=== PATIENT | male | born 1985 | race Caucasian/White ===

== ENCOUNTER 2017-09-12 01:12 | Emergency (ER) | payer SELFPAY ==
--- NOTE | 2017-09-12 02:11 | ER Document Report ---
ED General - General Chief Complaint: Chest Pain Stated Complaint: CHEST PAIN Time Seen by Provider: 09/12/17 02:01 Notes: Patient is a 32-year-old male who presents with complaint of heart racing and feeling unwell. He said that he just finished a course of tapering prednisone. He said since being on prednisone is been very easily agitated. Tonight he felt like his heart started racing beat hard when he is playing video game. Later night he woke up and felt his heart beating hard and fast. With that he has some pain in his chest. Says symptoms were intermittent until he got to the ER. Since arriving to the ER his symptoms have resolved. Denies any leg pain or leg swelling. He denies any recent surgeries. No recent long road trips. He is a smoker. He has no other complaints at this time. No history of cardiac pathology in the past. Past Medical History - Social History Smoking Status: Current Every Day Smoker Frequency of alcohol use: None Drug Abuse: None Family History: Reviewed & Not Pertinent Review of Systems - Review of Systems Notes: My Normal Review Basic REVIEW OF SYSTEMS: CONSTITUTIONAL : Denies fever, chills, or sweats. Denies recent illness. EENT: Denies eye, ear, throat, or mouth pain or symptoms. Denies nasal or sinus congestion. CARDIOVASCULAR: Chest pain palpitations. RESPIRATORY: Denies cough, cold, or chest congestion. Denies shortness of breath, difficulty breathing, or wheezing. GASTROINTESTINAL: Denies abdominal pain. Denies nausea, vomiting, or diarrhea. SKIN: Denies rash or skin lesions. NEUROLOGICAL: Denies altered mental status or loss of consciousness. ALL OTHER SYSTEMS REVIEWED AND NEGATIVE. Physical Exam - Vital signs Vitals: Temp Pulse Resp BP Pulse Ox 98.1 F 95 18 119/62 100 09/12/17 01:24 09/12/17 01:24 09/12/17 01:24 09/12/17 01:24 09/12/17 01:24 - Notes Notes: General Appearance: Well nourished, alert, cooperative, no acute distress, no obvious discomfort. Well-appearing. Vitals: reviewed, See vital signs table. Head: no swelling or tenderness to the head Eyes: PERRL, EOMI, Conjuctiva clear Mouth: No decreasd moisture Lungs: No wheezing, No rales, No rhonci, No accessory muscle use, good air exchange bilaterally. Heart: Normal rate, Regular rythm, No murmur, no rub Abdomen: Normal BS, soft, No rigidity, No abdominal tenderness, No guarding, no rebound, no abdominal masses, no organomegaly Extremities: strength 5/5 in all extremities, good pulses in all extremities, no swelling or tenderness in the extremities, no edema. Skin: warm, dry, appropriate color, no rash Neuro: speech clear, oriented x 3, normal affect, responds appropriately to questions. Course - Re-evaluation Re-evalutation: 09/12/17 02:01 EKG is reviewed and interpreted by me. EKG shows sinus rhythm with a rate of [address] segment elevation or depression. No ischemic T-wave inversions. OR interval, QRS duration, QTc intervals are within normal range. No old EKG available for comparison. 09/12/17 05:20 Patient looks very well on exam. His symptoms have resolved. He does not have any ectopy on the monitor. His EKG does not show any concerning findings. His chest x-ray is negative. He does mention that he has been having some increased agitation since starting prednisone. He did just finish the prednisone. I am unsure if maybe his symptoms are rate related to more of a psychosomatic type response due to his agitation. Informed him to rest and relax over the next 24 to 48 hrs. Informed him that if he continues to have these episodes of feeling as if his heart is beating fast that he should follow- up with outfitter cabin for reevaluation and possible Holter monitor. I informed him that if he has prolonged periods of feeling his heart is going fast that will he should return to ER immediately for reevaluation. Patient agrees with plan will be discharged home. Dictation of this chart was performed using voice recognition software; therefore, there may be some unintended grammatical errors. - Vital Signs Vital signs: Temp Pulse Resp BP Pulse Ox 98.2 F 84 17 121/78 98 09/12/17 03:25 09/12/17 03:25 09/12/17 03:25 09/12/17 03:25 09/12/17 03:25 Discharge - Discharge Clinical Impression: Palpitations Chest pain Qualifiers: Chest pain type: unspecified Qualified Code(s): R07.9 - Chest pain, unspecified Condition: Good Disposition: HOME, SELF-CARE Additional Instructions: Please rest over the next few days. please avoid caffeine or any type of energy supplements. Please try to cut back on smoking. Please follow up with Dr. Yeboah, outfitter cabin, if you continue to have the intermittent chest pain and fast heart beating throughout the weekend. Please return to the ER immediately if you have continuous palpitations that does not go away on its own or worsening recurrent chest pain. Forms: Special Work Note, Return to Work Referrals: BINDU YEBOAH MD [ACTIVE STAFF] - Follow up in 3-5 days
--- NOTE | 2017-09-12 02:32 | RADIOLOGY REPORT (SQ) ---
EXAM DESCRIPTION: CHEST PA/LAT CLINICAL HISTORY: 32 years, Male, chest pain, palpitations COMPARISON: None. NUMBER OF VIEWS: 2 FINDINGS: Normal lung volume, clear parenchyma, normal cardiac silhouette, and intact bony thorax. IMPRESSION: No acute cardiopulmonary findings.
[2017-09-12 03:35] VITALS: BP 121/78
--- NOTE | 2017-09-12 08:07 | EKG REPORT ---
SEVERITY:- BORDERLINE ECG - SINUS RHYTHM BORDERLINE T ABNORMALITIES, ANT-LAT LEADS : Confirmed by: Antwan Upton MD 12-Sep-2017 08:07:17
== END 2017-09-12 03:34 | disposition home or self-care (01) ==
LOC: ER 01:12
DX: R07.9 Chest pain, unspecified (principal); R00.2 Palpitations; Z79.899 Other long term (current) drug therapy; F17.200 Nicotine dependence, unspecified, uncomplicated
CPT/HCPCS: 71046; 93005; 93010; 99285

== ENCOUNTER 2017-10-29 21:39 | Emergency (ER) | payer SELFPAY ==
--- NOTE | 2017-10-29 23:42 | EKG REPORT ---
SEVERITY:- NORMAL ECG - SINUS RHYTHM : Confirmed by: Sony Mcgraw 29-Oct-2017 23:42:14
--- NOTE | 2017-10-30 00:59 | ER Document Report ---
ED Cardiac <LAUREBernardBHARATH - Last Filed: 10/30/17 03:19> - General TRAVEL OUTSIDE OF THE [place] IN LAST 30 DAYS: Yes COUNTRY TRAVELED TO/FROM: [place] - HPI Patient complains to provider of: denies: Chest pain, Chest tightness <MAXINE ROBIN - Last Filed: 10/30/17 05:38> - General Chief Complaint: Chest Pain Stated Complaint: CHEST PAIN Time Seen by Provider: 10/30/17 00:58 Notes: 32-year-old male to the emergency department complaining of intermittent tachycardia. Patient states he has been seen on 3 separate occasions in emergency departments for his intermittent tachycardia. Was seen 2 days ago at [facility] in [facility] where he states that they mya blood, did chest x-ray and EKG for the second time and did not find anything abnormal. States that all of a sudden he will notice that his heart is racing. Has a rash as well on his chest and back. Denies any drug use. States he does not drink or smoke. Has not tried anything for the symptoms. Has not passed out. Denies any fever, chills, sweats. States when he wakes up in the morning he is still tired and his muscles feel weak. Does not have a regular doctor. Has not followed up with anyone. Has an appointment on 10 November with a loss prevention and safety manager. (MAXINE ROBIN) Past Medical History - General Information source: Patient - Social History Smoking Status: Never Smoker Cigarette use (# per day): No Frequency of alcohol use: None Drug Abuse: None Lives with: Spouse/Significant other Family History: Reviewed & Not Pertinent Renal/ Medical History: Denies: Hx Peritoneal Dialysis <MAXINE ROBIN - Last Filed: 10/30/17 05:38> Review of Systems - Review of Systems Constitutional: Malaise, Weakness. denies: Chills, Diaphoresis EENT: No symptoms reported Cardiovascular: Chest pain, Palpitations, Heart racing Respiratory: No symptoms reported Gastrointestinal: No symptoms reported Genitourinary: No symptoms reported Male Genitourinary: No symptoms reported Musculoskeletal: No symptoms reported Skin: See HPI, Lesions, Rash Hematologic/Lymphatic: No symptoms reported Neurological/Psychological: No symptoms reported <MAXINE ROBIN - Last Filed: 10/30/17 05:38> Physical Exam - Vital signs Interpretation: Normal - General General appearance: Appears well, Alert - HEENT Head: Normocephalic, Atraumatic Eyes: Normal Pupils: PERRL - Respiratory Respiratory status: No respiratory distress Chest status: Nontender Breath sounds: Normal Chest palpation: Normal - Cardiovascular Rhythm: Regular Heart sounds: Normal auscultation Murmur: No - Abdominal Inspection: Normal Distension: No distension Bowel sounds: Normal Tenderness: Nontender Organomegaly: No organomegaly - Back Back: Normal, Nontender - Extremities General upper extremity: Normal inspection, Nontender, Normal color, Normal ROM , Normal temperature General lower extremity: Normal inspection, Nontender, Normal color, Normal ROM , Normal temperature, Normal weight bearing. No: Jordan's sign - Neurological Neuro grossly intact: Yes Cognition: Normal Orientation: AAOx4 Milmay Coma Scale Eye Opening: Spontaneous Brenda Coma Scale Verbal: Oriented Brenda Coma Scale Motor: Obeys Commands Milmay Coma Scale Total: 15 Speech: Normal Motor strength normal: LUE, RUE, LLE, RLE Sensory: Normal - Psychological Associated symptoms: Normal affect, Normal mood - Skin Skin Temperature: Warm Skin Moisture: Dry Skin Color: Normal, Other - he does appear to have multiple small little red rash/lesions on the chest and back. None involving the hands. <MAXINE ROBIN - Last Filed: 10/30/17 05:38> - Vital signs Vitals: Temp Pulse Resp BP Pulse Ox 97.6 F 69 18 116/76 98 10/29/17 22:08 10/29/17 22:08 10/29/17 22:08 10/29/17 22:08 10/29/17 22:08 Course - Laboratory Result Diagrams: 10/30/17 02:12 10/30/17 02:12 <BHARATH OLIVER - Last Filed: 10/30/17 03:19> - Laboratory Result Diagrams: 10/30/17 02:12 10/30/17 02:12 - EKG Interpretation by Tn EKG shows normal: Sinus rhythm, [place], Intervals, QRS Complexes, ST-T Waves <MAXINE ROBIN - Last Filed: 10/30/17 05:38> - Re-evaluation Re-evalutation: 10/30/17 05:37 Explained to patient that he will need a good close outpatient follow-up. TSH slightly elevated but free T4 within normal limits. This would not explain his symptoms. Advised him to strongly follow-up with a regular doctor for further testing. 10/30/17 05:[address] him on some propranolol. Advised him extensively how to use this medication. Patient feels comfortable with this plan. Will DC. (MAXINE ROBIN) - Vital Signs Vital signs: Temp Pulse Resp BP Pulse Ox 97.9 F 63 18 115/73 100 10/30/17 03:43 10/30/17 03:43 10/30/17 03:43 10/30/17 03:43 10/30/17 03:43 - Laboratory Laboratory results interpreted by me: 10/30/17 10/30/17 10/30/17 02:12 02:12 02:38 Sodium 147.6 H Glucose 114 H TSH 5.97 H Urine Blood MODERATE H Urine Urobilinogen 2.0 H Discharge <BHARATH OLIVER - Last Filed: 10/30/17 03:19> <MAXINE ROBIN - Last Filed: 10/30/17 05:38> - Discharge Clinical Impression: Heart palpitations Condition: Good Disposition: HOME, SELF-CARE Instructions: Chest Pain of Unclear Cause ([facility]), Palpitations (Irregular or Rapid Heartrate) ([facility]) Additional Instructions: It is uncertain why you are having the symptoms. You will need to follow-up with a regular doctor as an outpatient for more further testing. The begin to develop chest pain, tachycardia, worsening symptoms we are always here. Please do not hesitate to return. Take all medications as prescribed. Prescriptions: Propranolol HCl [Inderal 10 mg Tablet] 10 mg PO Q12 30 Days #60 tab Forms: Return to Work
[2017-10-30 02:22] LABS: ABSOLUTE EOSINOPHILS # (AUTO) 0.1 10^3/uL (0.0-0.6); ABSOLUTE LYMPHOCYTES (AUTO) 3.2 10^3/uL (0.5-4.7); ABSOLUTE MONOCYTES (AUTO) 0.6 10^3/uL (0.1-1.4); BASOPHILS % (AUTO) 0.5 % (0-2); EOSINOPHILS % (AUTO) 1.7 % (0-6); HEMATOCRIT 44.7 % (37.9-51.0); HEMOGLOBIN 15.7 g/dL (13.5-17.0); LYMPHOCYTES % (AUTO) 40.3 % (13-45); MEAN CORPUSCULAR HEMOGLOBIN 29.4 pg (27.0-33.4); MEAN CORPUSCULAR HGB CONC 35.1 g/dL (32.0-36.0); MEAN CORPUSCULAR VOLUME 84 fl (80-97); MONOCYTES % (AUTO) 7.4 % (3-13); PLATELET COUNT 193 10^3/uL (150-450); RED BLOOD COUNT 5.34 10^6/uL (4.35-5.55); RED CELL DISTRIBUTION WIDTH 13.1 % (11.5-14.0); SEGMENTED NEUTROPHILS % (AUTO) 50.1 % (42-78); TOTAL CELLS COUNTED % (AUTO) 100 %
[2017-10-30 02:39] LABS: ALANINE AMINOTRANSFERASE 69 U/L (21-72); ALBUMIN 4.7 g/dL (3.5-5.0); ALKALINE PHOSPHATASE 91 U/L (38-126); ANION GAP 16 (5-19); ASPARTATE AMINO TRANSFERASE 40 U/L (17-59); BILIRUBIN,DIRECT 0.4 mg/dL (0.0-0.4); BILIRUBIN,TOTAL 0.6 mg/dL (0.2-1.3); BLOOD UREA NITROGEN 19 mg/dL (7-20); CALCIUM 9.8 mg/dL (8.4-10.2); CARBON DIOXIDE 25 mmol/L (22-30); CHLORIDE 107 mmol/L (98-107); GLUCOSE 114 mg/dL (75-110); POTASSIUM 4.1 mmol/L (3.6-5.0); SODIUM 147.6 mmol/L (137-145); TOTAL PROTEIN 7.7 g/dL (6.3-8.2)
[2017-10-30 03:05] LABS: APPEARANCE,URINE CLEAR; BILIRUBIN,URINE NEGATIVE (NEGATIVE); COLOR,URINE YELLOW; GLUCOSE, URINE NEGATIVE (NEGATIVE); KETONES,URINE NEGATIVE (NEGATIVE); LEUKOCYTE ESTERASE,URINE NEGATIVE (NEGATIVE); NITRITE,URINE NEGATIVE (NEGATIVE); PROTEIN,URINE NEGATIVE (NEGATIVE); URINE SPECIFIC GRAVITY 1.034
[2017-10-30 03:17] LABS: FREE T4 (FREE THYROXINE) 1.19 ng/dL (0.78-2.19)
[2017-10-30 03:21] LABS: URINE AMPHETAMINES SCREEN NEGATIVE; URINE BARBITURATES SCREEN NEGATIVE; URINE BENZODIAZEPINES SCREEN NEGATIVE; URINE COCAINE SCREEN NEGATIVE; URINE MARIJUANA (THC) SCREEN NEGATIVE; URINE METHADONE SCREEN NEGATIVE; URINE PHENCYCLIDINE SCREEN NEGATIVE
[2017-10-30 03:31] LABS: THYROID STIMULATING HORMONE 5.97 uIU/mL (0.47-4.68)
[2017-10-30 03:52] VITALS: BP 115/73
[2017-11-04 07:29] LABS: LYME DISEASE IGM AB <0.80 index (0.00-0.79)
== END 2017-10-30 03:51 | disposition home or self-care (01) ==
LOC: ER 21:39
DX: R00.2 Palpitations (principal); R07.9 Chest pain, unspecified; R00.0 Tachycardia, unspecified; R21 Rash and other nonspecific skin eruption
CPT/HCPCS: 36415; 80053; 80307; 81001; 84439; 84443; 85025; 86617; 86618; 93005; 93010; 99285

== ENCOUNTER 2017-11-03 16:29 | Emergency (ER) | payer SELFPAY ==
--- NOTE | 2017-11-03 17:38 | ER Document Report ---
ED Medical Screen (RME) - General Chief Complaint: Syncope Stated Complaint: CHEST PAIN/SHORTNESS OF BREATH Time Seen by Provider: 11/03/17 17:23 Notes: RAPID MEDICAL EVALUATION DISCLOSURE I have seen this patient as part of a Rapid Medical Evaluation and, if applicable, placed any initially appropriate orders. The patient will be seen and fully evaluated, including a full history and physical exam, by a provider ( in Main ED or Fast Track) when a room becomes available. 32-year-old male here with complaints of continued shortness of breath palpitations chest pain ongoing for the past few months but progressively worsening in frequency and intensity. He states that he is now having lightheadedness and earlier today had an episode of syncope once he got out of the shower. He states he did not injure himself and does not have any pain for the fall. He has been drinking plenty of fluids, several gallons per day of water. He has an appointment with a eyelet row marker on November 10. EXAM Regular rate and rhythm Clear to auscultation bilaterally Midsternal chest wall tenderness to palpation TRAVEL OUTSIDE OF THE [place] IN LAST 30 DAYS: No COUNTRY TRAVELED TO/FROM: [place] - Related Data Allergies/Adverse Reactions: yellow dye Allergy (Verified 11/03/17 16:37) Past Medical History - Social History Chew tobacco use (# tins/day): No Frequency of alcohol use: None Drug Abuse: None Renal/ Medical History: Denies: Hx Peritoneal Dialysis Past Surgical History: Reports: Hx Tonsillectomy Physical Exam - Vital signs Vitals: Temp Pulse Resp BP Pulse Ox 98.4 F 62 16 119/64 100 11/03/17 16:38 11/03/17 16:38 11/03/17 16:38 11/03/17 16:38 11/03/17 16:38 Course - Vital Signs Vital signs: Temp Pulse Resp BP Pulse Ox 98.4 F 62 16 119/64 100 11/03/17 16:38 11/03/17 16:38 11/03/17 16:38 11/03/17 16:38 11/03/17 16:38
--- NOTE | 2017-11-03 18:10 | RADIOLOGY REPORT (SQ) ---
EXAM DESCRIPTION: CHEST 2 VIEWS COMPLETED DATE/TIME: 11/03/2017 6:00 pm REASON FOR STUDY: syncope cp sob COMPARISON: 09/12/2017 EXAM PARAMETERS: NUMBER OF VIEWS: two views TECHNIQUE: Digital Frontal and Lateral radiographic views of the chest acquired. RADIATION DOSE: NA LIMITATIONS: none FINDINGS: LUNGS AND PLEURA: No opacities, masses or pneumothorax. No pleural effusion. MEDIASTINUM AND HILAR STRUCTURES: No masses or contour abnormalities. HEART AND VASCULAR STRUCTURES: Heart normal size. No evidence for failure. BONES: No acute findings. HARDWARE: None in the chest. OTHER: No other significant finding. IMPRESSION: NO ACUTE RADIOGRAPHIC FINDING IN THE CHEST. TECHNICAL DOCUMENTATION: JOB ID: [id number] [employer]- All Rights Reserved Reading location - IP/workstation name: [email or web address]
--- NOTE | 2017-11-03 18:21 | EKG REPORT ---
SEVERITY:- NORMAL ECG - SINUS RHYTHM : Confirmed by: Antwan Upton MD 03-Nov-2017 18:20:40
[2017-11-03 18:37] LABS: ABSOLUTE EOSINOPHILS # (AUTO) 0.1 10^3/uL (0.0-0.6); ABSOLUTE MONOCYTES (AUTO) 0.3 10^3/uL (0.1-1.4); ABSOLUTE NEUT (AUTO) 6.8 10^3/uL (1.7-8.2); BASOPHILS % (AUTO) 0.2 % (0-2); EOSINOPHILS % (AUTO) 0.8 % (0-6); HEMATOCRIT 45.7 % (37.9-51.0); HEMOGLOBIN 16.2 g/dL (13.5-17.0); LYMPHOCYTES % (AUTO) 21.5 % (13-45); MEAN CORPUSCULAR HEMOGLOBIN 29.2 pg (27.0-33.4); MEAN CORPUSCULAR HGB CONC 35.4 g/dL (32.0-36.0); MEAN CORPUSCULAR VOLUME 83 fl (80-97); MONOCYTES % (AUTO) 3.7 % (3-13); PLATELET COUNT 204 10^3/uL (150-450); RED BLOOD COUNT 5.54 10^6/uL (4.35-5.55); RED CELL DISTRIBUTION WIDTH 13.1 % (11.5-14.0); SEGMENTED NEUTROPHILS % (AUTO) 73.8 % (42-78); TOTAL CELLS COUNTED % (AUTO) 100 %; WHITE BLOOD COUNT 9.2 10^3/uL (4.0-10.5)
[2017-11-03 18:57] LABS: URINE AMPHETAMINES SCREEN NEGATIVE; URINE BARBITURATES SCREEN NEGATIVE; URINE BENZODIAZEPINES SCREEN NEGATIVE; URINE COCAINE SCREEN NEGATIVE; URINE MARIJUANA (THC) SCREEN NEGATIVE; URINE METHADONE SCREEN NEGATIVE; URINE PHENCYCLIDINE SCREEN NEGATIVE
[2017-11-03 19:00] LABS: ALANINE AMINOTRANSFERASE 100 U/L (21-72); ALBUMIN 5.5 g/dL (3.5-5.0); ALKALINE PHOSPHATASE 102 U/L (38-126); ANION GAP 15 (5-19); ASPARTATE AMINO TRANSFERASE 44 U/L (17-59); BILIRUBIN,DIRECT 0.3 mg/dL (0.0-0.4); BILIRUBIN,TOTAL 0.8 mg/dL (0.2-1.3); BLOOD UREA NITROGEN 11 mg/dL (7-20); CALCIUM 10.6 mg/dL (8.4-10.2); CARBON DIOXIDE 27 mmol/L (22-30); CHLORIDE 105 mmol/L (98-107); GLUCOSE 100 mg/dL (75-110); LIPASE 118.4 U/L (23-300); PHOSPHORUS 2.7 mg/dL (2.5-4.5); POTASSIUM 3.6 mmol/L (3.6-5.0); SODIUM 146.8 mmol/L (137-145); TOTAL PROTEIN 8.7 g/dL (6.3-8.2)
[2017-11-03] MEDS ORDERED: HALOPERIDOL LACTATE INJ 5 MG/1 ML VIAL IV ONE (20:38)
[2017-11-03] MEDS ORDERED: NORMAL SALINE 1000 ML 1,000 ML IV ONE (20:39)
--- NOTE | 2017-11-03 21:18 | ER Document Report ---
ED General - General Chief Complaint: Syncope Stated Complaint: CHEST PAIN/SHORTNESS OF BREATH Time Seen by Provider: 11/03/17 17:23 Notes: Patient is a 32 year old male without chronic medical problems who presents with 2 months of intermittent palpitations, chest pain and shortness of breath. The patient has been seen on multiple occasions for the same without clear diagnosis although he states that a former doctor told him he is depressed and/ or anxious and prescribed Zoloft. He has however not begun taking this medication. He states that his symptoms have been progressively worsening since onset. He states for the last several days he has slept most of the day that anytime he gets up he feels extremely fatigued, develops a sensation of palpitations and lightheadedness. He states today he had an episode of near syncope with 1 of these episodes of palpitations prompting him come the emergency department. He denies any illicit substance use or alcohol use. He denies any radiation of the pain and does describe it as a burning, stabbing pain to his epigastric and left lower chest. Nothing improves or worsens his symptoms. He states he does not feel anxious but does admit to no longer performing activities that he used to enjoy, sleeping most of the time and having no energy. He does have a follow-up appointment with a caption writer within the next 1 week. TRAVEL OUTSIDE OF THE [place] IN LAST 30 DAYS: No COUNTRY TRAVELED TO/FROM: [place] - Related Data Allergies/Adverse Reactions: yellow dye Allergy (Verified 11/03/17 16:37) Past Medical History - General Information source: Patient - Social History Smoking Status: Former Smoker Chew tobacco use (# tins/day): No Frequency of alcohol use: None Drug Abuse: None Lives with: Spouse/Significant other Family History: Reviewed & Not Pertinent Patient has suicidal ideation: No Patient has homicidal ideation: No Renal/ Medical History: Denies: Hx Peritoneal Dialysis Past Surgical History: Reports: Hx Tonsillectomy Review of Systems - Review of Systems Notes: Constitutional: Negative for fever. Positive for general fatigue HENT: Negative for sore throat. Eyes: Negative for visual changes. Cardiovascular: Positive for chest pain and palpitations Respiratory: Negative for shortness of breath. Gastrointestinal: Negative for abdominal pain, vomiting or diarrhea. Genitourinary: Negative for dysuria. Musculoskeletal: Negative for back pain. Skin: Negative for rash. Neurological: Negative for headaches, weakness or numbness. 10 point ROS negative except as marked above and in HPI. Physical Exam - Vital signs Vitals: Temp Pulse Resp BP Pulse Ox 98.4 F 62 16 119/64 100 11/03/17 16:38 11/03/17 16:38 11/03/17 16:38 11/03/17 16:38 11/03/17 16:38 Interpretation: Normal Notes: PHYSICAL EXAMINATION: GENERAL: Well-appearing, well-nourished and in no acute distress. HEAD: Atraumatic, normocephalic. EYES: Pupils equal round and reactive to light, extraocular movements intact, sclera anicteric, conjunctiva are normal. ENT: nares patent, oropharynx clear without exudates. Moist mucous membranes. NECK: Normal range of motion, supple without lymphadenopathy LUNGS: Breath sounds clear to auscultation bilaterally and equal. No wheezes rales or rhonchi. HEART: Regular rate and rhythm without murmurs ABDOMEN: Soft, nontender, normoactive bowel sounds. No guarding, no rebound. No masses appreciated. EXTREMITIES: Normal range of motion, no pitting or edema. No cyanosis. NEUROLOGICAL: No focal neurological deficits. Moves all extremities spontaneously and on command. PSYCH: Somewhat flat affect, appears moderately anxious SKIN: Warm, Dry, normal turgor, no rashes or lesions noted. Course - Re-evaluation Re-evalutation: 11/03/17 21:12 Patient presents with multiple vague complaints that did not appear to be concerning for any acute life-threatening pathology. Vitals are within normal limits at triage and at time of discharge. Physical examination is unremarkable. Patient has tolerated oral intake without difficulty. Patient was not noted to be in distress at any point during their ER visit. Overall anticipate that the patient is extraordinarily anxious and depressed. He reports that anytime he gets up and walks around he develops severe palpitations and becomes short of breath. However we walked him around in the emergency department on monitor his heart rate does not rise above 80, he has no dyspnea, no lightheadedness and no apparent discomfort of any kind. The patient's labs have been repeatedly normal and he provides multiple symptoms to suggest an underlying diagnosis of depression that is not being treated including fatigue, sleeping most of the day, hopelessness, and loss of willpower to do activities that he used to enjoy such as riding his motorcycle. The patient has not started the Zoloft that was prescribed to him by a previous provider nor has he taken the atenolol that they have recommended he take if he is having palpitations. I have encouraged him to be compliant with his treatment regiment as I suspect that this would help his symptoms substantially. The remainder of his laboratories and EKG are unremarkable. I do not suspect any life-threatening etiology of today's presentation. Will discharge with return precautions and follow-up recommendations. Verbal discharge instructions given a the bedside and opportunity for questions given. Medication warnings reviewed. Patient is in agreement with this plan and has verbalized understanding of return precautions and the need for primary care follow-up in the next 24-72 hours. - Vital Signs Vital signs: Temp Pulse Resp BP Pulse Ox 98.4 F 61 11 L 126/72 H 100 11/03/17 16:38 11/03/17 19:11 11/03/17 21:18 11/03/17 21:18 11/03/17 21:18 - Laboratory Result Diagrams: 11/03/17 18:24 11/03/17 18:24 Laboratory results interpreted by me: 11/03/17 18:24 Sodium 146.8 H Calcium 10.6 H ALT 100 H Total Protein 8.7 H Albumin 5.5 H - Diagnostic Test Radiology reviewed: Image reviewed, Reports reviewed Radiology results interpreted by me: 11/03/17 21:15 Chest x-ray: No acute infiltrate or pneumothorax - EKG Interpretation by Me Additional EKG results interpreted by me: 11/03/17 21:15 Normal sinus rhythm. Rate 62. No ST elevations or depressions. QTC is 370. Discharge - Discharge Clinical Impression: Palpitations Syncope Qualifiers: Syncope type: unspecified Qualified Code(s): R55 - Syncope and collapse Depression Qualifiers: Depression Type: unspecified Qualified Code(s): F32.9 - Major depressive disorder, single episode, unspecified Condition: Good Disposition: HOME, SELF-CARE Additional Instructions: Please follow-up with your caption writer as scheduled regarding these palpitations. When he walked around today your heart rate remained within normal limits, your respirations did not elevate. Your labs, EKG and chest x- ray remained normal today. Return if you develop chest pain, shortness of breath, pass out, or have any other symptoms that are worrisome to you. Prescriptions: Sertraline HCl [Zoloft] 25 mg PO DAILY #30 tablet
[2017-11-03 21:38] VITALS: BP 126/72
== END 2017-11-03 21:20 | disposition home or self-care (01) ==
LOC: ER 16:29
DX: R55 Syncope and collapse (principal); F32.9 Major depressive disorder, single episode, unspecified; R00.2 Palpitations; R07.9 Chest pain, unspecified; R06.02 Shortness of breath; R53.83 Other fatigue; R10.13 Epigastric pain; Z91.048 Other nonmedicinal substance allergy status; Z87.891 Personal history of nicotine dependence
CPT/HCPCS: 36415; 71046; 80053; 80307; 83690; 83735; 84100; 84443; 84484; 85025; 93005; 93010; 99284